=== PATIENT | female | born 1975 | race Caucasian/White ===

== ENCOUNTER → 2017-10-05 | Outpatient (CLI) | payer BC ==
--- NOTE | 2017-10-05 13:28 | RAD ---
HISTORY: Bilateral hip pain, right greater than left Study: Bilateral hips: Two views each Comparison: Findings: The pelvic ring is intact. Mild degenerative changes present in the sacroiliac joints. The pubic ra mi are intact. The right hip shows areas of complete joint loss. Sclerosis of the acetabulum is noted. Minimal spu rring is present. There appears to be subchondral cyst formation in the femoral head. There is mode rate ring osteophyte formation noted. Mild buttressing of the femoral neck is noted. There are find ings suggesting acetabular impingement. Mild deformity of the femoral head is noted felt to be due t o degenerative change. The left hip shows minimal joint space narrowing and acetabular spurring. Minimal buttressing of the femoral neck is noted. This again suggests acetabular impingement. Otherwise the femoral head cont our and femoral neck are intact. No acute bony abnormalities are identified. IMPRESSION: 1. Degenerative change in the hips as described above, right greater than left. 2. No acute bony abnormalities are identified. Reported By:
--- NOTE | 2017-10-05 13:42 | RAD ---
HISTORY: Low back pain. Bilateral hip pain. Study: Lumbar spine with obliques Comparison: None Findings: Five lumbar type vertebra present. Minimal facet arthropathy is noted throughout with moderate at L5 /S1. Mild degenerative changes present in the sacroiliac joints. Degenerative changes noted in both hips, right greater than left. There is suggestion of a possible chronic pars defect on the left at L5. The lateral view demonstrates normal curvature and alignment. The vertebral bodies and interve rtebral disc spaces are of normal height. Mild anterior spurring is noted at T12/L1. IMPRESSION: 1. Lumbar spondylosis as described above. 2. Possible chronic pars defect on the left at L5. 3. No acute bony abnormalities are identified. Reported By:
== END | disposition home or self-care (01) | DRG 556 ==
LOC: RAD 10:21
PROVIDERS: ATTEND Nurse Practitioner Family
DX: M25.551 Pain in right hip (principal); M25.552 Pain in left hip; M54.17 Radiculopathy, lumbosacral region; M47.896 Other spondylosis, lumbar region
CPT/HCPCS: 72110; 73521

== ENCOUNTER → 2017-10-14 | Outpatient (CLI) | payer BC ==
--- NOTE | 2017-10-14 10:03 | MRI ---
MRI right hip without contrast Indication: Right hip pain Technique: Multisequence, multiplanar MR images of the right hip were obtained without IV contrast. Comparison: Radiograph 10/05/2017 Findings: No acute fracture, malalignment, suspicious osseous lesion or osteonecrosis of either femor al head is identified. There is advanced degenerative arthrosis of the right hip, as evidenced by complete superior joint sp saturnino loss with flattening and subchondral sclerosis of the superior right femoral head. Prominent muriel inal collar osteophyte formation about the right femoral head/neck, moderate sized joint effusion and diffuse degenerative tearing and fraying of the labrum are also seen. There is also a 4-5 mm cyst al ana the superior lateral acetabulum (image 15, series 601), suggestive for a small paralabral cyst. Mild degenerative changes of the left hip, bilateral SI joints and pubic symphysis are also noted. Th e myotendinous structures about the bilateral hips and pelvis are unremarkable. Mild colonic divertic ulosis, 2 cm probable uterine fibroid and 1.5 cm right ovarian cyst are noted. The remaining imaged c ontents of the lower abdomen and pelvis are grossly unremarkable. Impression: Moderately advanced degenerative arthrosis of the right hip, as detailed above. Mild degenerative changes of the remaining pelvis and additional incidental findings, as above. Reported By:
== END ==
LOC: RAD 08:21
PROVIDERS: ATTEND Nurse Practitioner Family
DX: M16.11 Unilateral primary osteoarthritis, right hip (principal); M25.851 Other specified joint disorders, right hip; M25.551 Pain in right hip
CPT/HCPCS: 73721

== ENCOUNTER → 2018-01-07 | Outpatient (CLI) | payer BC | LOC: LAB 17:13 | PROVIDERS: ATTEND Orthopaedic Surgery Orthopaedic Trauma | DX: Z79.01 Long term (current) use of anticoagulants (principal) | CPT/HCPCS: 36415; 85610 ==